=== PATIENT | male | born 1945 | race Asian ===

== ENCOUNTER 2017-10-27 07:35 | Emergency (ER) | payer MEDICARE, OTHER ==
[~2017-10-27] VITALS: Ht 167.6 cm; Wt 79.5 kg
[2017-10-27] MEDS ORDERED: INHALER IH (07:43)
[2017-10-27 07:53] VITALS: BP 161/102
== END 2017-10-27 08:13 | disposition home or self-care (01) ==
LOC: EMS 07:35
DX: R21 Rash and other nonspecific skin eruption (principal); J45.909 Unspecified asthma, uncomplicated
CPT/HCPCS: 99283